=== PATIENT | female | born 1960 | race Caucasian/White ===

== ENCOUNTER → 2017-03-18 | Outpatient (CLI) | payer OTHER ==
[2017-03-25 02:43] LABS: ANTI-CENTROMERE AB <1.0 NEG AI (<1.0 NEG); ANTI-SS-A <1.0 NEG AI (<1.0 NEG); ANTI-SS-B <1.0 NEG AI (<1.0 NEG); DNA ds CRITHIDIA POSITIVE (NEGATIVE); Sm Antibody <1.0 NEG AI (<1.0 NEG)
[2017-03-25 13:53] LABS: DNA ds CRITHIDIA TITER 1:10 (<1:10)
== END | disposition home or self-care (01) ==
LOC: C.LABPBG 10:02
PROVIDERS: ATTEND Internal Medicine Rheumatology
DX: M06.4 Inflammatory polyarthropathy (principal); M25.562 Pain in left knee; M22.2X9 Patellofemoral disorders, unspecified knee; R76.8 Other specified abnormal immunological findings in serum